=== PATIENT | male | born 1990 | race Caucasian/White ===

== ENCOUNTER 2022-06-05 11:58 | Inpatient (IN) ==
[2022-06-05 12:59] LABS: Hematocrit 41 % (42-52); Mean Corpuscular HGB Conc 35 g/dL (31-36); Mean Corpuscular Hemoglobin 33 pg (27-31); Mean Corpuscular Volume 97 fL (80-94); Mean Platelet Volume 6.7 fL (7.4-10.4); Platelet Count 676 10^3/uL (150-450); Red Blood Count 4.19 10^6 /uL (4.18-5.48); Red Cell Distribution Width 14 % (10-15); White Blood Count 17.8 10^3/uL (3.5-10.8)
[2022-06-05 13:01] LABS: Urine Appearance Clear; Urine Bilirubin Negative (Negative); Urine Blood Negative (Negative); Urine Color Yellow; Urine Glucose Negative (Negative); Urine Ketones Negative (Negative); Urine Nitrite Negative (Negative); Urine Protein Negative (Negative); Urine Specific Gravity 1.015 (1.005-1.030); Urine Urobilinogen 0.2 (Negative) (Negative); Urine pH 7.5 (5.0-9.0)
[2022-06-05 13:51] LABS: ALT 22 U/L (7-52); AST 19 U/L (13-39); Albumin 4.5 g/dL (3.2-5.2); Albumin/Globulin Ratio 1.6 (1-3); Alkaline Phosphatase 85 U/L (35-149); Anion Gap 9 mmol/L (2-11); Blood Urea Nitrogen 9 mg/dL (6-24); CO2 Carbon Dioxide 28 mmol/L (22-32); Calcium 10.5 mg/dL (8.6-10.3); Chloride 90 mmol/L (101-111); Globulin 2.9 g/dL (2-4); Glucose 109 mg/dL (70-100); Lipase 95 U/L (11.0-82.0); Potassium 4.7 mmol/L (3.5-5.0); Sodium 127 mmol/L (135-145); Total Protein 7.4 g/dL (6.4-8.9); eGFR CKD-EPI 117.4 (>60)
[2022-06-05 13:54] LABS: ABS Basophils 0.1 10^3/ul (0-0.2); ABS Eosinophils 0.2 10^3/ul (0-0.6); ABS Lymphocytes 2.7 10^3/ul (1.0-4.8); ABS Monocytes 1.2 10^3/ul (0-0.8); ABS Neutrophils 13.6 10^3/ul (1.5-7.7); Eosinophil % 1.1 %; Lymphocyte % 15.1 %
[2022-06-05] MEDS ORDERED: Iohexol 350 (CONTRAST) 500 ML MDV IV ONE (14:12)
[2022-06-05] MEDS ORDERED: Lactated Ringers 1000 ml BAG 1,000 ML IV ONE ×2 (15:09→16:15)
[2022-06-05] MEDS ORDERED: Cefepime 2 GM in Dextrose 2 GM/50 ML BAG IV ONE (15:12)
[2022-06-05] MEDS ORDERED: metroNIDAZOLE IV 500 MG/100ML 500 MG/100 ML BAG IVPB ONE (15:12)
[2022-06-05 16:04] LABS: Amylase 40 U/L (29-103)
[2022-06-05] MEDS ORDERED: Ondansetron 4 mg VIAL 2 MG/ML 2 ml VIAL IV PRN (16:10)
[2022-06-05] MEDS ORDERED: Piperacillin/Tazobac ADVAN 3.375 GM in NS 0.9% 100 ml BAG 100 ML IV ONE (16:10)
[2022-06-05] MEDS ORDERED: Nicotine GUM 2MG FRUIT FLAVOR PO PRN (16:27)
[2022-06-05] MEDS ORDERED: Acetaminophen IV 1 GM/100ML 1,000 MG/100 ML BAG IV PRN (16:33)
[2022-06-05] MEDS ORDERED: Morphine 2 MG/ML SYRINGE IV PRN (16:41)
[2022-06-05 16:50] LABS: Alcohol, S < 13 mg/dL (<13); Cholesterol 150 mg/dL; HDL Cholesterol 31.1 mg/dL; LDL Cholesterol 71 mg/dL; Triglycerides 241 mg/dL
[2022-06-05] MEDS ORDERED: NORMOSOL-R pH 7.4 1000 mL BAG 1,000 ML IV SCH (17:00)
[2022-06-05] MEDS ORDERED: Zosyn per Pharmacy NOTE FOLLOW UP SCH (17:00)
[2022-06-05] MEDS ORDERED: ZOSYN 3.375 GM Q8H per EXTENDED INFUSION IV ONE (21:30)
[2022-06-05] MEDS ORDERED: HYDROmorphone 1 MG/1 ML SYRINGE IV SLOW PU SCH (23:00)
[2022-06-05] MEDS: ZOSYN 3.375 GM Q8H per EXTENDED INFUSION IV SCH (23:44)
[2022-06-05] MEDS: HYDROmorphone 1 MG/1 ML SYRINGE IV SLOW PU PRN (23:47)
[2022-06-05] MEDS: Heparin 5000 UNITS/ML 1 mL VIAL SUBCUT SCH (23:55)
[2022-06-06] MEDS: HYDROmorphone 1 MG/1 ML SYRINGE IV SLOW PU PRN ×4 (02:45→11:17)
[2022-06-06] MEDS: Heparin 5000 UNITS/ML 1 mL VIAL SUBCUT SCH ×3 (04:16→21:20)
[2022-06-06] MEDS: NS 0.9% 1000 ml BAG 1,000 ML IV SCH ×3 (04:25→20:23)
[2022-06-06] MEDS ORDERED: ZOSYN 3.375 GM Q8H per EXTENDED INFUSION IV SCH (06:00)
[2022-06-06 07:42] LABS: ABS Basophils 0.1 10^3/ul (0-0.2); ABS Eosinophils 0.2 10^3/ul (0-0.6); ABS Lymphocytes 2.5 10^3/ul (1.0-4.8); ABS Monocytes 1.3 10^3/ul (0-0.8); Eosinophil % 1.5 %; Hematocrit 36 % (42-52); Hemoglobin 12.3 g/dL (14.0-18.0); Lymphocyte % 17.7 %; Mean Corpuscular HGB Conc 35 g/dL (31-36); Mean Corpuscular Hemoglobin 34 pg (27-31); Mean Corpuscular Volume 97 fL (80-94); Mean Platelet Volume 6.9 fL (7.4-10.4); Platelet Count 514 10^3/uL (150-450); Red Blood Count 3.67 10^6 /uL (4.18-5.48); Red Cell Distribution Width 14 % (10-15); White Blood Count 14.1 10^3/uL (3.5-10.8)
[2022-06-06] MEDS: ZOSYN 3.375 GM Q8H per EXTENDED INFUSION IV SCH ×3 (08:15→22:16)
[2022-06-06 08:17] LABS: Albumin 3.7 g/dL (3.2-5.2); Albumin/Globulin Ratio 1.5 (1-3); Calcium 9.5 mg/dL (8.6-10.3); Globulin 2.4 g/dL (2-4); Potassium 4.9 mmol/L (3.5-5.0); Total Protein 6.1 g/dL (6.4-8.9); eGFR CKD-EPI 113.4 (>60)
[2022-06-06] MEDS: Nicotine PATCH 21 MG/24 HR PATCH TRANSDERM SCH (08:18)
[2022-06-07] MEDS: HYDROmorphone 1 MG/1 ML SYRINGE IV SLOW PU PRN ×3 (01:48→08:05)
[2022-06-07] MEDS: NS 0.9% 1000 ml BAG 1,000 ML IV SCH ×3 (04:23→19:59)
[2022-06-07] MEDS: Heparin 5000 UNITS/ML 1 mL VIAL SUBCUT SCH ×3 (06:16→21:26)
[2022-06-07] MEDS: ZOSYN 3.375 GM Q8H per EXTENDED INFUSION IV SCH ×2 (08:05→16:10)
[2022-06-07] MEDS: Nicotine PATCH 21 MG/24 HR PATCH TRANSDERM SCH (08:06)
[2022-06-07] MEDS: HYDROmorphone 0.5 MG/0.5 ML SYRINGE IV SLOW PU PRN ×4 (11:56→21:23)
[2022-06-08] MEDS: HYDROmorphone 0.5 MG/0.5 ML SYRINGE IV SLOW PU PRN ×2 (00:29→03:54)
[2022-06-08] MEDS: NS 0.9% 1000 ml BAG 1,000 ML IV SCH (03:50)
[2022-06-08] MEDS: Heparin 5000 UNITS/ML 1 mL VIAL SUBCUT SCH (05:11)
[2022-06-08 05:31] LABS: ABS Basophils 0.1 10^3/ul (0-0.2); ABS Eosinophils 0.2 10^3/ul (0-0.6); ABS Monocytes 0.5 10^3/ul (0-0.8); ABS Neutrophils 4.6 10^3/ul (1.5-7.7); Eosinophil % 2.9 %; Hematocrit 31 % (42-52); Hemoglobin 10.4 g/dL (14.0-18.0); Lymphocyte % 26.5 %; Mean Corpuscular HGB Conc 34 g/dL (31-36); Mean Corpuscular Hemoglobin 33 pg (27-31); Mean Corpuscular Volume 97 fL (80-94); Platelet Count 342 10^3/uL (150-450); Red Blood Count 3.13 10^6 /uL (4.18-5.48); Red Cell Distribution Width 14 % (10-15); White Blood Count 7.4 10^3/uL (3.5-10.8)
[2022-06-08 05:51] LABS: Albumin 3.3 g/dL (3.2-5.2); Albumin/Globulin Ratio 1.6 (1-3); Calcium 8.9 mg/dL (8.6-10.3); Globulin 2.1 g/dL (2-4); Potassium 4.1 mmol/L (3.5-5.0); Total Bilirubin 0.3 mg/dL (0.2-1.0); Total Protein 5.4 g/dL (6.4-8.9)
[2022-06-08] MEDS: Nicotine PATCH 21 MG/24 HR PATCH TRANSDERM SCH (08:18)
[2022-06-08 11:21] VITALS: BP 147/90
== END 2022-06-08 13:48 | disposition home or self-care (01) | DRG 282 ==
LOC: ED 11:58 → MED 14:00 → SUATTDRO 16:11 → MEDTELE 16:11 → ED 20:50 → MED 22:51
PROVIDERS: ADMIT Internal Medicine; ATTEND Internal Medicine

== ENCOUNTER 2023-08-15 06:20 | Inpatient (IN) ==
[2023-08-15] MEDS ORDERED: NS 0.9% 1000 ml BAG 1,000 ML IV ONE (06:51)
[2023-08-15] MEDS ORDERED: HYDROmorphone 1 MG/1 ML SYRINGE IV SLOW PU ONE ×3 (07:19→11:57)
[2023-08-15] MEDS ORDERED: Ondansetron 4 mg VIAL 2 MG/ML 2 ml VIAL IV ONE ×2 (07:19→09:37)
[2023-08-15 07:58] LABS: ABS Lymphocytes 1.3 10^3/uL (1.0-4.8); ABS Monocytes 0.8 10^3/uL (0.0-1.1); ABS Neutrophils 9.3 10^3/uL (1.5-7.6); ABS Nucleated RBC 0.02 10^3/ul; Eosinophil % 0.2 %; Hematocrit 44.9 % (38-53); Hemoglobin 16.4 g/dL (13.2-16.3); Lymphocyte % 11.1 %; Mean Corpuscular Hemoglobin 35.1 pg (27-33); Mean Corpuscular Hgb Conc 36.5 g/dL (31-36); Mean Corpuscular Volume 96.1 fL (80-97); Mean Platelet Volume 6.8 fL (7.5-11.2); Nucleated Red Blood Cells % 0.2 %/100WBC (0.0-0.8); Platelet Count 234 10^3/uL (150-450); Red Blood Count 4.67 10^6/uL (4.06-5.63); White Blood Count 11.4 10^3/uL (3.6-10.2)
[2023-08-15 08:23] LABS: Albumin 4.9 g/dL (3.2-5.2); Albumin/Globulin Ratio 1.8 (1-3); Calcium 10.2 mg/dL (8.6-10.3); Creatinine, Serum 0.86 mg/dL (0.67-1.17); Globulin 2.7 g/dL (2-4); Magnesium 1.9 mg/dL (1.9-2.7); Potassium 3.5 mmol/L (3.5-5.0); Total Bilirubin 1.5 mg/dL (0.2-1.0); Total Protein 7.6 g/dL (6.4-8.9); eGFR CKD-EPI 115.8 (>60)
[2023-08-15] MEDS ORDERED: Lactated Ringers 1000 ml BAG 1,000 ML IV ONE (08:36)
[2023-08-15] MEDS ORDERED: Metoclopramide 5 MG/ML VIAL (10 mg) IV SLOW PU ONE (09:12)
[2023-08-15] MEDS ORDERED: HYDROmorphone 0.5 MG/0.5 ML SYRINGE IV SLOW PU ONE ×2 (09:50→20:36)
[2023-08-15 10:05] LABS: Urine Appearance Cloudy; Urine Bacteria Absent (Absent); Urine Bilirubin Negative (Negative); Urine Blood 1+ (Negative); Urine Color Yellow; Urine Glucose Negative (Negative); Urine Ketones 1+ (Negative); Urine Nitrite Negative (Negative); Urine Protein Negative (Negative); Urine Red Blood Cell 3+(>10/hpf) (Absent); Urine Specific Gravity 1.018 (1.002-1.030); Urine Squamous Epithelial Cell Present (Absent); Urine Urobilinogen Negative (Negative); Urine White Blood Cell Trace(0-5/hpf) (Absent)
[2023-08-15] MEDS ORDERED: Iohexol 300 (CONTRAST) 10 ML SDV IV ONE (10:53)
[2023-08-15] MEDS ORDERED: Droperidol 5 MG/2 ML 2 ML VIAL IV ONE (12:29)
[2023-08-15] MEDS ORDERED: LORazepam 2 mg VIAL 1 ml IV PUSH PRN (14:42)
[2023-08-15] MEDS ORDERED: Lorazepam PYXIS KEY PRN (14:42)
[2023-08-15] MEDS ORDERED: Lactated Ringers 1000 ml BAG 1,000 ML IV SCH ×2 (15:00→19:25)
[2023-08-15] MEDS: Ondansetron 4 mg VIAL 2 MG/ML 2 ml VIAL IV PRN ×2 (15:34→19:58)
[2023-08-15] MEDS: Nicotine PATCH 7 MG/24 HR PATCH TRANSDERM SCH (16:23)
[2023-08-15] MEDS: HYDROmorphone 0.5 MG/0.5 ML SYRINGE IV PRN ×2 (16:39→20:18)
[2023-08-16] MEDS: HYDROmorphone 1 MG/1 ML SYRINGE IV PRN ×6 (00:39→21:30)
[2023-08-16] MEDS: Ondansetron 4 mg VIAL 2 MG/ML 2 ml VIAL IV PRN ×6 (00:42→21:28)
[2023-08-16] MEDS: Lactated Ringers 1000 ml BAG 1,000 ML IV SCH ×2 (07:50→14:58)
[2023-08-16 08:03] LABS: Hematocrit 40.4 % (38-53); Hemoglobin 14.6 g/dL (13.2-16.3); Mean Corpuscular Hemoglobin 35.3 pg (27-33); Mean Corpuscular Volume 97.9 fL (80-97); Mean Platelet Volume 7.1 fL (7.5-11.2); Platelet Count 167 10^3/uL (150-450); Red Blood Count 4.13 10^6/uL (4.06-5.63); White Blood Count 10.8 10^3/uL (3.6-10.2)
[2023-08-16 08:09] LABS: INR 1.01 (0.83-1.13)
[2023-08-16 09:13] LABS: Calcium 9.1 mg/dL (8.6-10.3); Creatinine, Serum 0.75 mg/dL (0.67-1.17); Potassium 3.8 mmol/L (3.5-5.0); eGFR CKD-EPI 120.7 (>60)
[2023-08-16] MEDS: Nicotine PATCH 7 MG/24 HR PATCH TRANSDERM SCH (11:46)
[2023-08-16] MEDS ORDERED: Lactated Ringers 1000 ml BAG 1,000 ML IV SCH (22:00)
[2023-08-17] MEDS: HYDROmorphone 1 MG/1 ML SYRINGE IV PRN ×2 (01:43→06:09)
[2023-08-17 06:08] LABS: Hematocrit 33.2 % (38-53); Mean Corpuscular Hemoglobin 35.7 pg (27-33); Mean Corpuscular Hgb Conc 36.3 g/dL (31-36); Mean Corpuscular Volume 98.5 fL (80-97); Mean Platelet Volume 7.2 fL (7.5-11.2); Platelet Count 143 10^3/uL (150-450); Red Blood Count 3.37 10^6/uL (4.06-5.63); Red Cell Distribution Width 13.4 % (12-17); White Blood Count 9.8 10^3/uL (3.6-10.2)
[2023-08-17 06:28] LABS: Calcium 8.8 mg/dL (8.6-10.3); Creatinine, Serum 0.74 mg/dL (0.67-1.17); Magnesium 2.1 mg/dL (1.9-2.7); eGFR CKD-EPI 121.2 (>60)
[2023-08-17] MEDS ORDERED: HYDROmorphone 1 MG/1 ML SYRINGE IV PRN (09:37)
[2023-08-17] MEDS: Nicotine PATCH 7 MG/24 HR PATCH TRANSDERM SCH (10:39)
[2023-08-17 17:54] VITALS: BP 137/80
== END 2023-08-17 19:15 | disposition home or self-care (01) | DRG 282 ==
LOC: EDHOLD 06:20 → ED 06:20 → OBSVTOIN 14:26 → INTOOBSV 14:26 → MED 17:00
PROVIDERS: ADMIT Hospitalist; ATTEND Hospitalist

== ENCOUNTER 2023-08-24 19:45 | Inpatient (IN) ==
[2023-08-24] MEDS ORDERED: Lactated Ringers 1000 ml BAG 1,000 ML IV ONE ×2 (20:18→21:35)
[2023-08-24] MEDS ORDERED: HYDROmorphone 0.5 MG/0.5 ML SYRINGE IV ONE ×2 (20:20→21:53)
[2023-08-24] MEDS ORDERED: Ondansetron 4 mg VIAL 2 MG/ML 2 ml VIAL IV ONE (20:21)
[2023-08-24 20:35] LABS: ABS Basophils 0.1 10^3/uL (0.0-0.1); ABS Eosinophils 0.2 10^3/uL (0.0-0.5); ABS Lymphocytes 2.7 10^3/uL (1.0-4.8); ABS Monocytes 0.8 10^3/uL (0.0-1.1); ABS Neutrophils 6.7 10^3/uL (1.5-7.6); ABS Nucleated RBC 0.01 10^3/ul; Eosinophil % 1.6 %; Hematocrit 43.2 % (38-53); Hemoglobin 15.5 g/dL (13.2-16.3); Lymphocyte % 25.7 %; Mean Corpuscular Hemoglobin 34.6 pg (27-33); Mean Corpuscular Hgb Conc 35.9 g/dL (31-36); Mean Corpuscular Volume 96.1 fL (80-97); Mean Platelet Volume 6.7 fL (7.5-11.2); Nucleated Red Blood Cells % 0.1 %/100WBC (0.0-0.8); Platelet Count 491 10^3/uL (150-450); Red Blood Count 4.49 10^6/uL (4.06-5.63); Red Cell Distribution Width 13.5 % (12-17); White Blood Count 10.4 10^3/uL (3.6-10.2)
[2023-08-24 20:36] LABS: Urine Appearance Cloudy; Urine Bilirubin Negative (Negative); Urine Blood 1+ (Negative); Urine Color Yellow; Urine Glucose Negative (Negative); Urine Ketones Negative (Negative); Urine Nitrite Negative (Negative); Urine Protein Negative (Negative); Urine Specific Gravity 1.017 (1.002-1.030); Urine Urobilinogen Negative (Negative)
[2023-08-24 20:38] LABS: Urine Bacteria Absent (Absent); Urine Red Blood Cell 1+(3-5/hpf) (Absent); Urine White Blood Cell Trace(0-5/hpf) (Absent)
[2023-08-24 20:57] LABS: Albumin 4.7 g/dL (3.2-5.2); Albumin/Globulin Ratio 1.5 (1-3); C Reactive Protein 38.97 mg/L (<8.01); Calcium 10.2 mg/dL (8.6-10.3); Creatinine, Serum 1.09 mg/dL (0.67-1.17); Globulin 3.1 g/dL (2-4); Magnesium 2.2 mg/dL (1.9-2.7); Potassium 3.6 mmol/L (3.5-5.0); Total Bilirubin 0.5 mg/dL (0.2-1.0); Total Protein 7.8 g/dL (6.4-8.9); eGFR CKD-EPI 90.8 (>60)
[2023-08-24] MEDS ORDERED: HYDROmorphone 0.5 MG/0.5 ML SYRINGE IV PRN (22:59)
[2023-08-24] MEDS ORDERED: Thiamine 100 MG/ML 2 ml VIAL (200 mg) IM ONE (23:07)
[2023-08-24] MEDS: Multivitamins/Minerals TAB PO SCH (23:31)
[2023-08-24] MEDS ORDERED: LORazepam 2 mg VIAL 1 ml IV PUSH SCH (23:45)
[2023-08-25] MEDS: Nicotine PATCH 14 MG/24 HR PATCH TRANSDERM SCH ×2 (00:28→08:41)
[2023-08-25] MEDS: Lactated Ringers 1000 ml BAG 1,000 ML IV SCH (01:32)
[2023-08-25] MEDS: Ondansetron 4 mg VIAL 2 MG/ML 2 ml VIAL IV PRN ×5 (01:34→23:32)
[2023-08-25] MEDS: HYDROmorphone 1 MG/1 ML SYRINGE IV PRN ×9 (01:35→23:32)
[2023-08-25 06:25] LABS: Hematocrit 39.1 % (38-53); Hemoglobin 14.3 g/dL (13.2-16.3); Mean Corpuscular Hgb Conc 36.5 g/dL (31-36); Mean Corpuscular Volume 95.8 fL (80-97); Mean Platelet Volume 6.6 fL (7.5-11.2); Platelet Count 362 10^3/uL (150-450); Red Blood Count 4.08 10^6/uL (4.06-5.63); Red Cell Distribution Width 13.9 % (12-17); White Blood Count 8.5 10^3/uL (3.6-10.2)
[2023-08-25 06:52] LABS: Calcium 9.4 mg/dL (8.6-10.3); Creatinine, Serum 0.99 mg/dL (0.67-1.17); Potassium 3.9 mmol/L (3.5-5.0); eGFR CKD-EPI 101.9 (>60)
[2023-08-25] MEDS: Multivitamins/Minerals TAB PO SCH (08:41)
[2023-08-25] MEDS ORDERED: Iohexol 300 (CONTRAST) 10 ML SDV IV ONE (09:28)
[2023-08-25] MEDS: oxyCODONE SR 10 mg TAB PO PRN (16:54)
[2023-08-26] MEDS ORDERED: Prochlorperazine 5 mg/ml 2 ml VIAL (10 mg) IV ONE (00:55)
[2023-08-26] MEDS: oxyCODONE SR 10 mg TAB PO PRN ×2 (01:02→15:15)
[2023-08-26] MEDS: Lactated Ringers 1000 ml BAG 1,000 ML IV SCH ×5 (01:17→23:20)
[2023-08-26] MEDS: HYDROmorphone 1 MG/1 ML SYRINGE IV PRN ×10 (01:47→20:56)
[2023-08-26] MEDS: Ondansetron 4 mg VIAL 2 MG/ML 2 ml VIAL IV PRN ×4 (04:57→20:56)
[2023-08-26 06:45] LABS: ABS Eosinophils 0.1 10^3/uL (0.0-0.5); ABS Lymphocytes 1.2 10^3/uL (1.0-4.8); ABS Monocytes 0.7 10^3/uL (0.0-1.1); ABS Neutrophils 7.1 10^3/uL (1.5-7.6); Eosinophil % 0.8 %; Hematocrit 35.3 % (38-53); Hemoglobin 12.5 g/dL (13.2-16.3); Lymphocyte % 12.8 %; Mean Corpuscular Hgb Conc 35.4 g/dL (31-36); Mean Platelet Volume 6.7 fL (7.5-11.2); Platelet Count 313 10^3/uL (150-450); Red Blood Count 3.68 10^6/uL (4.06-5.63); Red Cell Distribution Width 13.8 % (12-17); White Blood Count 9.1 10^3/uL (3.6-10.2)
[2023-08-26 07:10] LABS: Calcium 9.2 mg/dL (8.6-10.3); Creatinine, Serum 0.77 mg/dL (0.67-1.17); Magnesium 1.7 mg/dL (1.9-2.7); Potassium 3.6 mmol/L (3.5-5.0); eGFR CKD-EPI 119.7 (>60)
[2023-08-26] MEDS ORDERED: Potassium Chlor 20 meq TAB.ER PO ONE (07:47)
[2023-08-26] MEDS ORDERED: KCL 20 MEQ/100 ML IVPREMIX 20 MEQ/100 ML BAG IV ONE (07:48)
[2023-08-26] MEDS ORDERED: Magnesium Sulfate 2 gm BAG 2 GM/50 ML BAG IVPB ONE (07:48)
[2023-08-26] MEDS: Multivitamins/Minerals TAB PO SCH (08:06)
[2023-08-26] MEDS: Nicotine PATCH 14 MG/24 HR PATCH TRANSDERM SCH (09:21)
[2023-08-26] MEDS ORDERED: Lactated Ringers 1000 ml BAG 1,000 ML IV ONE (11:01)
[2023-08-26] MEDS: Magnesium Hydroxide LIQ 30 ML UDC PO PRN (12:47)
[2023-08-26] MEDS ORDERED: Calcium Carb (TUMS) 500 mg CHEW TAB PO ONE (21:17)
[2023-08-27] MEDS: HYDROmorphone 1 MG/1 ML SYRINGE IV PRN ×12 (00:29→23:44)
[2023-08-27] MEDS: Ondansetron 4 mg VIAL 2 MG/ML 2 ml VIAL IV PRN ×2 (02:24→13:49)
[2023-08-27 06:01] LABS: ABS Basophils 0.1 10^3/uL (0.0-0.1); ABS Eosinophils 0.1 10^3/uL (0.0-0.5); ABS Lymphocytes 1.6 10^3/uL (1.0-4.8); ABS Monocytes 0.4 10^3/uL (0.0-1.1); ABS Neutrophils 6.3 10^3/uL (1.5-7.6); Eosinophil % 1.7 %; Hematocrit 35.5 % (38-53); Hemoglobin 12.7 g/dL (13.2-16.3); Mean Corpuscular Hemoglobin 34.8 pg (27-33); Mean Corpuscular Hgb Conc 35.8 g/dL (31-36); Mean Corpuscular Volume 97.2 fL (80-97); Platelet Count 282 10^3/uL (150-450); Red Blood Count 3.66 10^6/uL (4.06-5.63); White Blood Count 8.6 10^3/uL (3.6-10.2)
[2023-08-27] MEDS: oxyCODONE SR 10 mg TAB PO PRN ×3 (06:06→23:43)
[2023-08-27] MEDS ORDERED: Prochlorperazine 5 mg/ml 2 ml VIAL (10 mg) IV ONE (06:29)
[2023-08-27 07:20] LABS: ALT 231 U/L (7-52); Albumin 3.9 g/dL (3.2-5.2); Albumin/Globulin Ratio 1.6 (1-3); Alkaline Phosphatase 246 U/L (35-149); Anion Gap 11 mmol/L (2-16); Blood Urea Nitrogen 4 mg/dL (6-24); CO2 Carbon Dioxide 21 mmol/L (22-32); Calcium 9.2 mg/dL (8.6-10.3); Chloride 103 mmol/L (101-111); Creatinine, Serum 0.73 mg/dL (0.67-1.17); Globulin 2.4 g/dL (2-4); Glucose 90 mg/dL (70-100); Sodium 135 mmol/L (135-145); Total Bilirubin 0.7 mg/dL (0.2-1.0); Total Protein 6.3 g/dL (6.4-8.9); eGFR CKD-EPI 121.7 (>60)
[2023-08-27] MEDS: Lactated Ringers 1000 ml BAG 1,000 ML IV SCH ×3 (07:21→23:11)
[2023-08-27] MEDS: Multivitamins/Minerals TAB PO SCH (07:22)
[2023-08-27 08:45] LABS: Magnesium 1.9 mg/dL (1.9-2.7); Potassium Redraw 4.2 mmol/L (3.5-5.0)
[2023-08-27] MEDS ORDERED: Polyethylene Glycol 3350 17 GM PACKET PO PRN (10:46)
[2023-08-27] MEDS ORDERED: Senna TAB 8.6 mg TAB PO PRN (10:46)
[2023-08-27 11:24] LABS: C Reactive Protein 98.41 mg/L (<8.01)
[2023-08-27 11:44] LABS: INR 1.23 (0.83-1.13)
[2023-08-27] MEDS ORDERED: Metoclopramide 5 MG/ML VIAL (10 mg) IV SLOW PU ONE (15:11)
[2023-08-27] MEDS ORDERED: Metoclopramide 5 MG/ML VIAL (10 mg) ONE (15:14)
[2023-08-27] MEDS ORDERED: HYDROmorphone 1 MG/1 ML SYRINGE IV SLOW PU ONE (15:18)
[2023-08-27] MEDS: Nicotine PATCH 14 MG/24 HR PATCH TRANSDERM SCH (17:53)
[2023-08-28] MEDS: Ondansetron 4 mg VIAL 2 MG/ML 2 ml VIAL IV PRN ×4 (00:34→22:40)
[2023-08-28] MEDS: HYDROmorphone 1 MG/1 ML SYRINGE IV PRN ×10 (01:50→22:40)
[2023-08-28 07:34] LABS: ABS Basophils 0.1 10^3/uL (0.0-0.1); ABS Eosinophils 0.2 10^3/uL (0.0-0.5); ABS Lymphocytes 1.7 10^3/uL (1.0-4.8); ABS Monocytes 0.6 10^3/uL (0.0-1.1); ABS Neutrophils 6.8 10^3/uL (1.5-7.6); Eosinophil % 1.6 %; Hematocrit 35.3 % (38-53); Hemoglobin 12.5 g/dL (13.2-16.3); Lymphocyte % 18.1 %; Mean Corpuscular Hemoglobin 34.1 pg (27-33); Mean Corpuscular Hgb Conc 35.5 g/dL (31-36); Platelet Count 278 10^3/uL (150-450); Red Blood Count 3.67 10^6/uL (4.06-5.63); Red Cell Distribution Width 13.7 % (12-17); White Blood Count 9.3 10^3/uL (3.6-10.2)
[2023-08-28] MEDS: Lactated Ringers 1000 ml BAG 1,000 ML IV SCH (07:40)
[2023-08-28 07:48] LABS: INR 1.26 (0.83-1.13)
[2023-08-28 08:48] LABS: Albumin 3.9 g/dL (3.2-5.2); Albumin/Globulin Ratio 1.4 (1-3); Calcium 9.5 mg/dL (8.6-10.3); Creatinine, Serum 0.7 mg/dL (0.67-1.17); Globulin 2.8 g/dL (2-4); Magnesium 1.7 mg/dL (1.9-2.7); Potassium 4.1 mmol/L (3.5-5.0); Total Bilirubin 0.5 mg/dL (0.2-1.0); Total Protein 6.7 g/dL (6.4-8.9); eGFR CKD-EPI 123.2 (>60)
[2023-08-28] MEDS: Multivitamins/Minerals TAB PO SCH (08:50)
[2023-08-28] MEDS: Nicotine PATCH 14 MG/24 HR PATCH TRANSDERM SCH (09:50)
[2023-08-28] MEDS: oxyCODONE SR 10 mg TAB PO PRN (11:10)
[2023-08-28] MEDS: Calcium Carb (TUMS) 500 mg CHEW TAB PO PRN (15:25)
[2023-08-28] MEDS: Magnesium Hydroxide LIQ 30 ML UDC PO PRN (17:54)
[2023-08-29] MEDS: oxyCODONE SR 10 mg TAB PO PRN ×2 (00:38→12:02)
[2023-08-29] MEDS: HYDROmorphone 1 MG/1 ML SYRINGE IV PRN ×3 (00:41→06:05)
[2023-08-29 06:37] LABS: Hematocrit 37.1 % (38-53); Hemoglobin 13.2 g/dL (13.2-16.3); Mean Corpuscular Hemoglobin 34.9 pg (27-33); Mean Corpuscular Hgb Conc 35.7 g/dL (31-36); Mean Corpuscular Volume 97.7 fL (80-97); Mean Platelet Volume 7.2 fL (7.5-11.2); Platelet Count 315 10^3/uL (150-450); Red Cell Distribution Width 13.7 % (12-17); White Blood Count 10.2 10^3/uL (3.6-10.2)
[2023-08-29 07:33] LABS: Albumin 4.1 g/dL (3.2-5.2); Albumin/Globulin Ratio 1.6 (1-3); Calcium 9.7 mg/dL (8.6-10.3); Creatinine, Serum 0.73 mg/dL (0.67-1.17); Globulin 2.6 g/dL (2-4); Magnesium 1.9 mg/dL (1.9-2.7); Potassium 4.3 mmol/L (3.5-5.0); Total Bilirubin 0.5 mg/dL (0.2-1.0); Total Protein 6.7 g/dL (6.4-8.9); eGFR CKD-EPI 121.7 (>60)
[2023-08-29] MEDS ORDERED: HYDROmorphone 1 MG/1 ML SYRINGE IV PRN (08:09)
[2023-08-29] MEDS: Multivitamins/Minerals TAB PO SCH (09:12)
[2023-08-29] MEDS: Nicotine PATCH 14 MG/24 HR PATCH TRANSDERM SCH (11:35)
[2023-08-29] MEDS: Calcium Carb (TUMS) 500 mg CHEW TAB PO PRN (12:04)
[2023-08-29] MEDS ORDERED: oxyCODONE SR 10 mg TAB PO PRN (15:07)
[2023-08-29 17:42] VITALS: BP 137/77
== END 2023-08-29 18:15 | disposition home or self-care (01) | DRG 282 ==
LOC: EDHOLD 19:45 → ED 19:45 → SUATTDRO 22:27 → SSU 08-25 00:59
PROVIDERS: ADMIT Internal Medicine; ATTEND Hospitalist

== ENCOUNTER 2024-01-11 10:56 | Observation (INO) ==
[2024-01-11] MEDS: HYDROmorphone 1 MG/1 ML SYRINGE IV ONE (12:11)
[2024-01-11] MEDS: Ondansetron 4 mg VIAL 2 MG/ML 2 ml VIAL IV ONE ×2 (12:11→16:17)
[2024-01-11] MEDS: Lactated Ringers 1000 ml BAG 1,000 ML IV ONE ×3 (12:12→18:43)
[2024-01-11 12:13] LABS: ABS Lymphocytes 1.1 10^3/uL (1.0-4.8); ABS Monocytes 0.6 10^3/uL (0.0-1.1); ABS Neutrophils 10.6 10^3/uL (1.5-7.6); ABS Nucleated RBC 0.01 10^3/ul; Hematocrit 44.4 % (38-53); Lymphocyte % 8.7 %; Mean Corpuscular Hemoglobin 34.2 pg (27-33); Mean Corpuscular Volume 94.8 fL (80-97); Mean Platelet Volume 6.3 fL (7.5-11.2); Platelet Count 183 10^3/uL (150-450); Red Blood Count 4.68 10^6/uL (4.06-5.63); Red Cell Distribution Width 14.3 % (12-17); White Blood Count 12.4 10^3/uL (3.6-10.2)
[2024-01-11 12:27] LABS: INR 1.16 (0.83-1.13)
[2024-01-11] MEDS: Prochlorperazine 5 mg/ml 2 ml VIAL (10 mg) IV ONE (12:57)
[2024-01-11 13:00] LABS: ALT 71 U/L (7-52); Albumin 4.8 g/dL (3.2-5.2); Albumin/Globulin Ratio 1.8 (1-3); Alkaline Phosphatase 96 U/L (35-149); Anion Gap 12 mmol/L (2-16); Blood Urea Nitrogen 16 mg/dL (6-24); C Reactive Protein < 1.00 mg/L (<8.01); CO2 Carbon Dioxide 28 mmol/L (22-32); Calcium 9.7 mg/dL (8.6-10.3); Chloride 97 mmol/L (101-111); Creatinine, Serum 0.77 mg/dL (0.67-1.17); Globulin 2.7 g/dL (2-4); Glucose 100 mg/dL (70-100); Lipase 150 U/L (11.0-82.0); Sodium 137 mmol/L (135-145); Total Bilirubin 0.6 mg/dL (0.2-1.0); Total Protein 7.5 g/dL (6.4-8.9); eGFR CKD-EPI 119.7 (>60)
[2024-01-11] MEDS: HYDROmorphone 1 MG/1 ML SYRINGE IV SLOW PU ONE ×2 (13:40→19:16)
[2024-01-11 13:58] LABS: Potassium Redraw 3.6 mmol/L (3.5-5.0)
[2024-01-11] MEDS: HYDROmorphone 1 MG/1 ML SYRINGE IV SLOW PU PRN (16:17)
[2024-01-11] MEDS: Iohexol 300 (CONTRAST) 10 ML SDV IV ONE (17:07)
[2024-01-11] MEDS: Thiamine 100 MG/ML 2 ml VIAL (200 mg) IM ONE (19:29)
[2024-01-11] MEDS ORDERED: Thiamine IV 100 MG/ML VIAL (only for Bannana Bags !) IVPB SCH (20:00)
[2024-01-11] MEDS: Ondansetron 4 mg VIAL 2 MG/ML 2 ml VIAL IV PRN (20:57)
[2024-01-11] MEDS: Thiamine 100 MG/ML 2 ml VIAL 200 MG in NS 0.9% 100 ml BAG 100 ML IV SCH (20:57)
[2024-01-11] MEDS: HYDROmorphone 1 MG/1 ML SYRINGE IV PRN (20:57)
[2024-01-11] MEDS: Lactated Ringers 1000 ml BAG 1,000 ML IV SCH (20:57)
[2024-01-11] MEDS: Enoxaparin 40 MG/0.4 ML SYR SUBCUT SCH (21:03)
[2024-01-11] MEDS: HYDROmorphone 0.5 MG/0.5 ML SYRINGE IV PRN (23:05)
[2024-01-12 07:43] LABS: Albumin 3.7 g/dL (3.2-5.2); Albumin/Globulin Ratio 1.9 (1-3); Calcium 8.3 mg/dL (8.6-10.3); Creatinine, Serum 0.75 mg/dL (0.67-1.17); Globulin 1.9 g/dL (2-4); Magnesium 1.2 mg/dL (1.9-2.7); Phosphorus 2.7 mg/dL (2.5-5.0); Potassium 3.6 mmol/L (3.5-5.0); Total Bilirubin 4.4 mg/dL (0.2-1.0); Total Protein 5.6 g/dL (6.4-8.9); eGFR CKD-EPI 120.7 (>60)
[2024-01-12 07:55] LABS: Hematocrit 35.5 % (38-53); Hemoglobin 12.8 g/dL (13.2-16.3); Mean Corpuscular Hemoglobin 34.7 pg (27-33); Mean Corpuscular Volume 96.2 fL (80-97); Red Blood Count 3.69 10^6/uL (4.06-5.63); Red Cell Distribution Width 14.5 % (12-17); White Blood Count 7.4 10^3/uL (3.6-10.2)
[2024-01-12 08:12] LABS: Mean Platelet Volume 6.7 fL (7.5-11.2); Platelet Count 84 10^3/uL (150-450)
[2024-01-12] MEDS: Multivitamins/Minerals TAB PO SCH (08:35)
[2024-01-12] MEDS: Magnesium Sulf 4 GM/100 ML IV 4,000 MG/100 ML BAG IVPB ONE (10:39)
[2024-01-12] MEDS: Lactated Ringers 1000 ml BAG 1,000 ML IV SCH (12:57)
[2024-01-12] MEDS: Magnesium Hydroxide LIQ 30 ML UDC PO ONE (21:18)
[2024-01-13 06:04] LABS: ABS Eosinophils 0.2 10^3/uL (0.0-0.5); ABS Lymphocytes 1.6 10^3/uL (1.0-4.8); ABS Monocytes 0.4 10^3/uL (0.0-1.1); ABS Neutrophils 4.6 10^3/uL (1.5-7.6); ABS Nucleated RBC 0.01 10^3/ul; Eosinophil % 2.4 %; Hematocrit 30.6 % (38-53); Hemoglobin 10.9 g/dL (13.2-16.3); Lymphocyte % 23.7 %; Mean Corpuscular Hgb Conc 35.8 g/dL (31-36); Mean Corpuscular Volume 97.9 fL (80-97); Nucleated Red Blood Cells % 0.2 %/100WBC (0.0-0.8); Platelet Count 75 10^3/uL (150-450); Red Blood Count 3.12 10^6/uL (4.06-5.63); Red Cell Distribution Width 14.4 % (12-17); White Blood Count 6.8 10^3/uL (3.6-10.2)
[2024-01-13 06:41] LABS: Creatinine, Serum 0.61 mg/dL (0.67-1.17); Magnesium 2.2 mg/dL (1.9-2.7); Potassium 3.4 mmol/L (3.5-5.0); eGFR CKD-EPI 128.5 (>60)
[2024-01-13] MEDS: KCL 20 MEQ/100 ML IVPREMIX 20 MEQ/100 ML BAG IV ONE (08:06)
[2024-01-13 08:23] LABS: Albumin 3.4 g/dL (3.2-5.2); Albumin/Globulin Ratio 1.9 (1-3); Direct Bilirubin 1.2 mg/dL (0.03-0.18); Globulin 1.8 g/dL (2-4); Indirect Bilirubin 1.2 mg/dL (0.3-1.0); Total Bilirubin 2.4 mg/dL (0.2-1.0); Total Protein 5.2 g/dL (6.4-8.9)
[2024-01-14] MEDS: Magnesium Hydroxide LIQ 30 ML UDC PO PRN (02:56)
[2024-01-14 06:29] LABS: ABS Eosinophils 0.1 10^3/uL (0.0-0.5); ABS Monocytes 0.3 10^3/uL (0.0-1.1); ABS Neutrophils 3.1 10^3/uL (1.5-7.6); ABS Nucleated RBC 0.01 10^3/ul; Eosinophil % 2.5 %; Hematocrit 29.9 % (38-53); Hemoglobin 10.8 g/dL (13.2-16.3); Lymphocyte % 36.1 %; Mean Corpuscular Hemoglobin 35.5 pg (27-33); Mean Corpuscular Volume 98.8 fL (80-97); Mean Platelet Volume 7.4 fL (7.5-11.2); Nucleated Red Blood Cells % 0.3 %/100WBC (0.0-0.8); Platelet Count 83 10^3/uL (150-450); Red Blood Count 3.03 10^6/uL (4.06-5.63); Red Cell Distribution Width 14.7 % (12-17); White Blood Count 5.6 10^3/uL (3.6-10.2)
[2024-01-14 07:07] LABS: Albumin 3.4 g/dL (3.2-5.2); Albumin/Globulin Ratio 1.7 (1-3); Calcium 8.1 mg/dL (8.6-10.3); Creatinine, Serum 0.66 mg/dL (0.67-1.17); Magnesium 2.1 mg/dL (1.9-2.7); Potassium 3.6 mmol/L (3.5-5.0); Total Bilirubin 0.7 mg/dL (0.2-1.0); Total Protein 5.4 g/dL (6.4-8.9); eGFR CKD-EPI 125.4 (>60)
[2024-01-14 11:11] VITALS: BP 140/95
== END 2024-01-14 12:15 | disposition home or self-care (01) ==
LOC: EDHOLD 10:56 → ED 10:56 → SUATTDRO 18:51 → EDHOLD 01-12 04:16 → SSU 01-12 05:02
PROVIDERS: ADMIT Internal Medicine; ATTEND Student in an Organized Health Care Education/Training Program